=== PATIENT | female | born 1975 | race Caucasian/White ===

== ENCOUNTER 2018-12-29 09:42 | Emergency (ER) | payer MEDICAID, OTHER ==
[~2018-12-29] VITALS: Ht 154.9 cm; Wt 83.0 kg
[2018-12-29 10:18] VITALS: BP 167/106
== END 2018-12-29 11:09 | disposition left against medical advice (07) ==
LOC: ER 09:42
DX: K04.7 Periapical abscess without sinus (principal); R03.0 Elevated blood-pressure reading, without diagnosis of hypertension
CPT/HCPCS: 99281